=== PATIENT | male | born 1975 | race Caucasian/White ===

== ENCOUNTER 2019-12-15 05:10 | Emergency (ER) | payer OTHER ==
[~2019-12-15] VITALS: Ht 165.1 cm; Wt 101.3 kg
[2019-12-15 05:55] LABS: BASOPHIL % 0.3 % (0-2); PLATELET COUNT 312 x10^3mcL (130-400); RED CELL DISTRIBUTION WIDTH 13.8 % (11.5-14.5)
[2019-12-15 07:30] LABS: CARBON DIOXIDE 22.2 mmol/L (21-32); CHLORIDE SERUM 97 mmol/L (98-107); GLUCOSE SERUM 118 mg/dL (74-106); POTASSIUM SERUM 3.7 mmol/L (3.5-5.1); SODIUM SERUM 135 mmol/L (136-145)
[2019-12-15 07:31] LABS: ALBUMIN 3.8 g/dL (3.4-5.0); BILIRUBIN TOTAL 0.5 mg/dL (0.20-1.00); CALCIUM 9.4 mg/dL (8.5-10.1); CREATININE SERUM 0.9 mg/dL (0.7-1.3); GFR1 > 60 mL/min; TOTAL PROTEIN, SERUM 8.5 g/dL (6.4-8.2)
[2019-12-15 07:32] LABS: ALKALINE PHOSPHATASE 113 U/L (46-116); ALT/SGPT 34 U/L (16-63); AST/SGOT 47 U/L (15-37)
[2019-12-15 08:51] VITALS: BP 179/100
== END 2019-12-15 08:52 | disposition home or self-care (01) ==
LOC: ED 05:10
DX: R07.89 Other chest pain (principal); F41.9 Anxiety disorder, unspecified; R11.2 Nausea with vomiting, unspecified; I10 Essential (primary) hypertension; Z90.89 Acquired absence of other organs
CPT/HCPCS: J1885; J2060; J2270; J7030; Q0092